=== PATIENT | male | born 1995 | race Hispanic/Latino ===

== ENCOUNTER 2020-02-15 10:30 | Emergency (ER) | payer OTHER ==
[2020-02-16 13:56] LABS: SARS-CoV-2 MS2 Positive; SARS-CoV-2 N Gene Negative; SARS-CoV-2 S Gene Negative; SARS-CoV-2 orf1ab Negative
== END 2020-02-15 11:15 | disposition home or self-care (01) ==
LOC: NAV ERS 10:30
DX: Z20.828 Contact with and (suspected) exposure to other viral communicable diseases (principal)
CPT/HCPCS: 87635; 99283; U0003

== ENCOUNTER 2020-02-22 14:14 | Emergency (ER) | payer BC ==
[2020-02-22] MEDS ORDERED: Lidocaine 1% w/Epinephrine 1:100K 30 ML VIAL ONE (14:39)
[2020-02-22] MEDS ORDERED: Lidocaine 1% (PF) 30 ML VIAL ONE (14:39)
[2020-02-22] MEDS ORDERED: Adacel (T-DAP) 0.5 ML SYRINGE ONE (14:41)
[2020-02-22] MEDS ORDERED: Bacitracin 1 PK ONE (14:51)
== END 2020-02-22 15:01 | disposition home or self-care (01) ==
LOC: NAV ERS 14:14
DX: S61.215A Laceration without foreign body of left ring finger without damage to nail, initial encounter (principal); W45.8XXA Other foreign body or object entering through skin, initial encounter; Y92.69 Other specified industrial and construction area as the place of occurrence of the external cause; Y99.0 Civilian activity done for income or pay
CPT/HCPCS: 12001; 90471; 90715; J2001